=== PATIENT | male | born 1985 | race Caucasian/White ===

== ENCOUNTER 2022-05-05 20:23 | Inpatient (IN) | payer BC, OTHER ==
[~2022-05-05 20:23] MED LIST: Iopamidol 370 76% 100 ML VIAL ONE; Magnevist 469MG/ML 20 ML VIAL ONE
[2022-05-05 22:35] VITALS: BMI 44.1
[2022-05-05] MEDS ORDERED: Ondansetron ODT 4 MG TAB PO PRN (23:12)
[2022-05-05] MEDS ORDERED: Loperamide HCl 2 MG CAP PO PRN ×2 (23:12)
[2022-05-05] MEDS ORDERED: Guaifenesin DM 100-10/5 ML UDCUP PO PRN (23:12)
[2022-05-05] MEDS ORDERED: Ondansetron PF 4 MG/2 ML Vial IVP PRN (23:12)
[2022-05-05] MEDS ORDERED: Acetaminophen 650 MG Suppository PR PRN (23:12)
[2022-05-05] MEDS ORDERED: Bisacodyl 5 MG TAB PO PRN (23:12)
[2022-05-05] MEDS ORDERED: Calcium Carbonate 500 MG ChewTAB PO PRN (23:12)
[2022-05-05] MEDS ORDERED: Bisacodyl 10 MG SUPP PR PRN (23:12)
[2022-05-05] MEDS ORDERED: Senokot S 8.6-50 MG TAB PO PRN (23:12)
[2022-05-05] MEDS: Dexamethasone 4 mg/ml Vial SLOW IVP SCH (23:14)
[2022-05-06] MEDS: Acetaminophen 325 MG TAB PO PRN ×2 (03:17→22:26)
[2022-05-06 05:05] LABS: #Basophils 0.1 thou/uL (0.0-0.2); #Lymphocytes 0.9 thou/uL (1.20-3.40); #Monocytes 0.2 thou/uL (0.11-0.59); #Neutrophils 8.7 thou/uL (1.40-6.50); %Lymphocytes 8.9 % (21.0-51.0); %Monocytes 1.6 % (0.0-10.0); %Neutrophils 88.4 % (42.0-75.0); Hemoglobin 14.7 g/dL (14.0-18.0); Mean Corpuscular HGB CONC 34.1 g/dL (32.0-36.0); Mean Corpuscular Hemoglobin 30.6 pg (27.0-31.0); Mean Corpuscular Volume 89.6 fL (78.0-98.0); Mean Platelet Volume 7.6 fL (7.4-10.4); Platelet Count 227 thou/uL (130-400); RBC Distribution Width 12.7 % (11.5-14.5); Red Blood Cell (RBC) Count 4.81 mill/uL (4.70-6.10); White Blood Cell (WBC) Count 9.8 thou/uL (4.8-10.8)
[2022-05-06 05:24] LABS: ALT (SGPT) 31 U/L (8-55); AST (SGOT) 14 U/L (5-34); Albumin 4.1 g/dL (3.5-5.0); Alkaline Phosphatase 59 U/L (40-110); Anion Gap 15 mmol/L (10-20); BUN (Urea Nitrogen) 15 mg/dL (8.9-20.6); Bilirubin, Total 1.3 mg/dL (0.2-1.2); Calc. Creatinine Clearance 210 mL/min (70-130); Calcium 9.6 mg/dL (7.8-10.44); Carbon Dioxide 20 mmol/L (22-29); Chloride 106 mmol/L (98-107); Estimated GFR 112; Glucose 204 mg/dL (70-105); Potassium 4.4 mmol/L (3.5-5.1); Protein, Total 7.1 g/dL (6.0-8.3); Sodium 137 mmol/L (136-145)
[2022-05-06] MEDS: Dexamethasone 4 mg/ml Vial SLOW IVP SCH ×3 (06:01→17:56)
[2022-05-06 08:22] LABS: Prothrombin Time 13.1 sec (12.0-14.7)
[2022-05-06] MEDS ORDERED: Famotidine 20 MG TAB PO SCH (09:00)
[2022-05-06] MEDS: Famotidine/PF 20 mg/2ml Vial SLOW IVP SCH ×2 (09:26→22:26)
[2022-05-06] MEDS ORDERED: CEFAZOLIN 2 GM in Sodium Chloride 0.9% 100 ML IVPB SCH (14:30)
[2022-05-07] MEDS: Dexamethasone 4 mg/ml Vial SLOW IVP SCH ×4 (00:23→17:23)
[2022-05-07] MEDS: Famotidine/PF 20 mg/2ml Vial SLOW IVP SCH (09:07)
[2022-05-07] MEDS: Acetaminophen 325 MG TAB PO PRN ×2 (09:08→22:03)
[2022-05-07] MEDS ORDERED: Dextrose 5% in Water 1,000 ML IV PRN (17:58)
[2022-05-07] MEDS ORDERED: HumaLOG 300 UNITS/3 ML VIAL SC PRN (17:58)
[2022-05-07] MEDS ORDERED: Dextrose 50% Abboject 50 ML SYRINGE SLOW IVP PRN (17:58)
[2022-05-07] MEDS: HumaLOG 300 UNITS/3 ML VIAL SC PRN (18:24)
[2022-05-08] MEDS: Dexamethasone 4 mg/ml Vial SLOW IVP SCH ×5 (00:34→23:50)
[2022-05-08 05:34] LABS: #Lymphocytes 1.4 thou/uL (1.20-3.40); #Monocytes 0.5 thou/uL (0.11-0.59); %Basophils 0.1 % (0.0-1.0); %Eosinophils 0.1 % (0.0-10.0); %Lymphocytes 9.9 % (21.0-51.0); %Monocytes 3.7 % (0.0-10.0); %Neutrophils 86.2 % (42.0-75.0); Hemoglobin 14.7 g/dL (14.0-18.0); Mean Corpuscular HGB CONC 34.8 g/dL (32.0-36.0); Mean Corpuscular Hemoglobin 31.6 pg (27.0-31.0); Mean Corpuscular Volume 90.9 fL (78.0-98.0); Mean Platelet Volume 7.8 fL (7.4-10.4); Platelet Count 233 thou/uL (130-400); RBC Distribution Width 12.9 % (11.5-14.5); Red Blood Cell (RBC) Count 4.67 mill/uL (4.70-6.10)
[2022-05-08 05:51] LABS: Anion Gap 14 mmol/L (10-20); BUN (Urea Nitrogen) 18 mg/dL (8.9-20.6); Calc. Creatinine Clearance 208 mL/min (70-130); Calcium 9.3 mg/dL (7.8-10.44); Carbon Dioxide 26 mmol/L (22-29); Chloride 102 mmol/L (98-107); Estimated GFR 112; Glucose 130 mg/dL (70-105); Potassium 4.1 mmol/L (3.5-5.1); Sodium 138 mmol/L (136-145)
[2022-05-08] MEDS ORDERED: CEFAZOLIN 2 GM in Sodium Chloride 0.9% 100 ML IVPB SCH (06:00)
[2022-05-08] MEDS: Acetaminophen 325 MG TAB PO PRN (09:48)
[2022-05-08] MEDS: HumaLOG 300 UNITS/3 ML VIAL SC PRN (12:17)
[2022-05-09] MEDS: Sodium Chloride 0.9% 1,000 ML IV SCH ×2 (05:50→21:15)
[2022-05-09] MEDS: Dexamethasone 4 mg/ml Vial SLOW IVP SCH ×3 (05:50→21:12)
[2022-05-09] MEDS ORDERED: Mannitol 12.5 GM/50 ML ONE (13:36)
[2022-05-09] MEDS ORDERED: Papaverine 60 MG/2 ML VIAL ONE (13:36)
[2022-05-09] MEDS ORDERED: Bacitracin Zinc Ointment 30 gm TUBE ONE (13:45)
[2022-05-09] MEDS ORDERED: fentaNYL Citrate/PF 100 MCG/2 ML SYRINGE ONE ×3 (13:57→16:12)
[2022-05-09] MEDS ORDERED: SUGAMMADEX SODIUM 200 MG/2 ML VIAL ONE (13:57)
[2022-05-09] MEDS ORDERED: Dexamethasone 20 MG/5 ML VIAL ONE (14:15)
[2022-05-09] MEDS ORDERED: Ondansetron PF 4 MG/2 ML Vial ONE (14:15)
[2022-05-09] MEDS ORDERED: Lidocaine 1% PF 5 ML VIAL ONE (14:15)
[2022-05-09] MEDS ORDERED: Phenylephrine 10 MG/ML VIAL ONE (14:15)
[2022-05-09] MEDS ORDERED: Rocuronium Bromide 10 MG/ML (10ML VIAL) ONE (14:15)
[2022-05-09] MEDS ORDERED: PROPOFOL 200 MG/20 ML VIAL ONE (14:15)
[2022-05-09] MEDS ORDERED: Promethazine HCl 25 MG/ML VIAL IM PRN (16:47)
[2022-05-09] MEDS ORDERED: Promethazine HCl 25 MG/ML VIAL IVPB PRN (16:47)
[2022-05-09] MEDS ORDERED: HYDROmorphone 2 MG/ML VIAL SLOW IVP PRN (16:47)
[2022-05-09] MEDS ORDERED: Ondansetron HCl/PF 4 MG/2 ML Vial IVP PRN (16:47)
[2022-05-09] MEDS ORDERED: Labetalol HCl 100 MG/20 ML VIAL SLOW IVP PRN (16:47)
[2022-05-09] MEDS ORDERED: Fentanyl 100 MCG/2 ML VIAL ONE ×3 (16:52→19:33)
[2022-05-09] MEDS ORDERED: Labetalol HCl 100 MG/20 ML VIAL ONE (17:02)
[2022-05-09] MEDS ORDERED: niCARdipine 25 MG in Sodium Chloride 0.9% 250 ML 250 ML IVPB SCH (17:15)
[2022-05-09] MEDS: Acetaminophen/Codeine 30-300mg Tablet PO PRN (22:17)
[2022-05-10] MEDS: Morphine 2 MG/ML VIAL SLOW IVP PRN ×2 (00:14→04:56)
[2022-05-10] MEDS: Dexamethasone 4 mg/ml Vial SLOW IVP SCH ×3 (04:55→21:36)
[2022-05-10] MEDS: Sodium Chloride 0.9% 1,000 ML IV SCH ×2 (06:14→13:52)
[2022-05-10 06:42] LABS: Hemoglobin 14.8 g/dL (14.0-18.0); Mean Corpuscular HGB CONC 32.8 g/dL (32.0-36.0); Mean Corpuscular Hemoglobin 29.7 pg (27.0-31.0); Mean Corpuscular Volume 90.6 fL (78.0-98.0); Mean Platelet Volume 7.6 fL (7.4-10.4); Platelet Count 271 thou/uL (130-400); Red Blood Cell (RBC) Count 4.99 mill/uL (4.70-6.10); White Blood Cell (WBC) Count 20.2 thou/uL (4.8-10.8)
[2022-05-10 06:52] LABS: Anion Gap 20 mmol/L (10-20); BUN (Urea Nitrogen) 21 mg/dL (8.9-20.6); Calc. Creatinine Clearance 234 mL/min (70-130); Calcium 8.7 mg/dL (7.8-10.44); Carbon Dioxide 17 mmol/L (22-29); Chloride 103 mmol/L (98-107); Estimated GFR 116; Glucose 140 mg/dL (70-105); Potassium 4.8 mmol/L (3.5-5.1); Sodium 135 mmol/L (136-145)
[2022-05-10 07:28] LABS: Band 8 % (5-11); Lymphocytes 9 % (21-51); MDiff Complete? YES; Monocytes 2 % (0-10); Neutrophil 79 % (42-75); Platelet Morphology Comment Appears Adequate; RBC Morphology Normal; Reactive Lymphocytes 2 % (0-10)
[2022-05-10] MEDS ORDERED: Polyethylene Glycol 3350 17 GM Packet PO PRN (07:52)
[2022-05-10] MEDS: Acetaminophen/Codeine 30-300mg Tablet PO PRN ×3 (08:10→19:46)
[2022-05-10] MEDS: Senokot S 8.6-50 MG TAB PO SCH ×2 (08:16→21:36)
[2022-05-10] MEDS ORDERED: Magnevist 469MG/ML 20 ML VIAL ONE (09:37)
[2022-05-11] MEDS: Sodium Chloride 0.9% 1,000 ML IV SCH ×3 (01:35→15:47)
[2022-05-11] MEDS: Acetaminophen/Codeine 30-300mg Tablet PO PRN ×3 (03:19→15:50)
[2022-05-11] MEDS: Dexamethasone 4 mg/ml Vial SLOW IVP SCH (04:01)
[2022-05-11] MEDS: Senokot S 8.6-50 MG TAB PO SCH (08:29)
[2022-05-11] MEDS ORDERED: hydrALAZINE 20 MG/ML VIAL SLOW IVP PRN (09:29)
[2022-05-11] MEDS ORDERED: Amlodipine 5 MG TAB PO SCH (10:30)
[2022-05-11 13:31] VITALS: BP 146/112
[2022-05-11] MEDS ORDERED: Dexamethasone 4 mg/ml Vial SLOW IVP SCH (16:00)
[2022-05-11 16:57] VITALS: TEMP 98.2
[2022-05-12] MEDS ORDERED: Amlodipine 5 MG TAB PO SCH (09:00)
== END 2022-05-11 17:30 | disposition home or self-care (01) | DRG 25 ==
LOC: NEURO 20:59 → CCU 05-09 13:57
PROVIDERS: ADMIT Hospitalist; ATTEND Hospitalist
PROC: 00B70ZZ Excision of Cerebral Hemisphere, Open Approach (ICD-10-PCS; principal; 2022-05-09)
PROC: 00B70ZX Excision of Cerebral Hemisphere, Open Approach, Diagnostic (ICD-10-PCS; 2022-05-09)
PROC: 8E09XBZ Computer Assisted Procedure of Head and Neck Region (ICD-10-PCS; 2022-05-09)
DX: C71.1 Malignant neoplasm of frontal lobe (principal); G93.6 Cerebral edema; E87.1 Hypo-osmolality and hyponatremia; D72.829 Elevated white blood cell count, unspecified; T38.0X5A Adverse effect of glucocorticoids and synthetic analogues, initial encounter; R73.9 Hyperglycemia, unspecified; Z80.3 Family history of malignant neoplasm of breast; Z80.49 Family history of malignant neoplasm of other genital organs
CPT/HCPCS: 36415; 36416; 70553; 71260; 74177; 80048; 80053; 85025; 85610; 85730; 86850; 86900; 86901; 88307; 88331; 88334; 88341; 88342; 93005; 93010; A9579; C1713; J1100; J1165; J1815; J2150; J2270; J2370; J2405; J2440; J2704; J3010; J7050; Q4107; Q9967; S0028

== ENCOUNTER 2023-09-20 23:55 | Inpatient (IN) | payer BC ==
[2023-09-21 00:42] LABS: Hematocrit 33.9 % (42.0-52.0); Hemoglobin 11.8 g/dL (14.0-18.0); Manual Diff?? YES; Mean Corpuscular HGB CONC 34.8 g/dL (32.0-36.0); Mean Corpuscular Hemoglobin 34.8 pg (27.0-31.0); Mean Platelet Volume 8.8 fL (7.4-10.4); Platelet Count 198 10x3/uL (130-400); Red Blood Cell (RBC) Count 3.39 mill/uL (4.70-6.10); White Blood Cell (WBC) Count 4.7 10x3/uL (4.8-10.8)
[2023-09-21 00:51] LABS: Delete Auto Diff?? YES
[2023-09-21 00:56] LABS: INR-International Normal Ratio 1.4; PTT 42.9 sec (22.9-36.1); Prothrombin Time 17.8 sec (12.0-14.7)
[2023-09-21 01:05] LABS: ALT (SGPT) 69 U/L (8-55); AST (SGOT) 25 U/L (5-34); Albumin 3.7 g/dL (3.5-5.0); Alkaline Phosphatase 54 U/L (40-110); Anion Gap 17 mmol/L (10-20); BUN (Urea Nitrogen) 13 mg/dL (8.9-20.6); Bilirubin, Total 2.3 mg/dL (0.2-1.2); Calc. Creatinine Clearance 0 mL/min (70-130); Calcium 9.3 mg/dL (7.8-10.44); Carbon Dioxide 19 mmol/L (22-29); Chloride 107 mmol/L (98-107); Estimated GFR 107; Globulin 3.2 g/dL (2.4-3.5); Glucose 132 mg/dL (70-105); Potassium 3.7 mmol/L (3.5-5.1); Protein, Total 6.9 g/dL (6.0-8.3); Sodium 139 mmol/L (136-145)
[2023-09-21 01:09] LABS: Troponin I Less than 0.010 ng/mL (< 0.028)
[2023-09-21] MEDS ORDERED: Cefepime 2 GM VIAL ONE (01:31)
[2023-09-21] MEDS ORDERED: Benzonatate 100 MG CAP ONE ×2 (01:31→01:36)
[2023-09-21] MEDS ORDERED: Sodium Chloride 0.9% 100 ML ONE (01:31)
[2023-09-21] MEDS ORDERED: Vancomycin 1 GM/200 ML (FROZEN) BAG ONE (02:06)
[2023-09-21 02:18] LABS: Anisocytosis SLIGHT = 6-15 cells HPF (0-5); Band 35 % (5-11); CellaVision Operator ID LAB.JMM; Large Platelets 1.9 % (0-5); Lymphocytes 10 % (21-51); Macrocytosis SLIGHT = 6-15 cells HPF (0-5); Metamyelocyte 1 % (0-0); Monocytes 5 % (0-10); Neutrophil 50 % (42-75); Platelet Adequacy Comment Platelets Normal; Polychromasia SLIGHT = 2-3 cells HPF (0-2); Smudge Cells 16.5 %; Total Cell Count 103
[2023-09-21] MEDS ORDERED: Ondansetron ODT 4 MG TAB PO PRN (02:24)
[2023-09-21] MEDS ORDERED: Acetaminophen 325 MG TAB PO PRN (02:24)
[2023-09-21] MEDS ORDERED: Ondansetron PF 4 MG/2 ML Vial IVP PRN (02:24)
[2023-09-21] MEDS ORDERED: Ipratropium/Albuterol 3 ML NEB NEB PRN (02:24)
[2023-09-21] MEDS ORDERED: Lactated Ringer's 1,000 ML IV SCH (02:30)
[2023-09-21 03:37] VITALS: BMI 40.7
[2023-09-21] MEDS ORDERED: Vancomycin (BATCH) 1.5 GM in Premix 1 BAG IVPB SCH (03:45)
[2023-09-21 05:17] LABS: Bacteria/HPF None Seen HPF (None Seen); Bilirubin Negative (Negative); Blood, Urine Negative (Negative); CAUTI Indications for Culture Fever or rigors; Clarity Clear (Clear); Glucose, Urine (Dipstick) Normal (Negative); Ketone, Urine Negative (Negative); Leukocyte Negative Leu/uL (Negative); Nitrite Negative (Negative); Protein, Urine (Dipstick) 30 mg/dL (Neg-Trace); RBC/HPF 0-3 HPF (0-3); Squamous Epithelial None Seen HPF (0-3); Urobilinogen Normal mg/dL (Less than 2); WBC/HPF None Seen HPF (0-3)
[2023-09-21 05:28] LABS: Specific Gravity, Urine Greater than 1.060 (1.002-1.036)
[2023-09-21 05:29] LABS: Urine Culture Reflex No No
[2023-09-21 05:34] LABS: Legionella Urinary Ag Negative (Negative); Strep pneumo Urine Ag NEGATIVE (NEGATIVE)
[2023-09-21 06:13] LABS: Lactic Acid 1.6 mmol/L (0.5-2.2)
[2023-09-21 06:19] LABS: ALT (SGPT) 59 U/L (8-55); AST (SGOT) 21 U/L (5-34); Albumin 3.1 g/dL (3.5-5.0); Alkaline Phosphatase 47 U/L (40-110); Anion Gap 14 mmol/L (10-20); BUN (Urea Nitrogen) 11 mg/dL (8.9-20.6); Calc. Creatinine Clearance 219 mL/min (70-130); Calcium 8.1 mg/dL (7.8-10.44); Carbon Dioxide 20 mmol/L (22-29); Chloride 110 mmol/L (98-107); Estimated GFR 116; Globulin 2.2 g/dL (2.4-3.5); Glucose 139 mg/dL (70-105); Potassium 3.9 mmol/L (3.5-5.1); Protein, Total 5.3 g/dL (6.0-8.3); Sodium 140 mmol/L (136-145)
[2023-09-21 06:22] LABS: Troponin I Less than 0.010 ng/mL (< 0.028)
[2023-09-21 06:35] LABS: Hematocrit 29.3 % (42.0-52.0); Manual Diff?? YES; Mean Corpuscular HGB CONC 34.1 g/dL (32.0-36.0); Mean Corpuscular Hemoglobin 34.8 pg (27.0-31.0); Mean Corpuscular Volume 102.1 fl (78.0-98.0); Mean Platelet Volume 8.9 fL (7.4-10.4); Platelet Count 174 10x3/uL (130-400); RBC Distribution Width 15.5 % (11.5-14.5); Red Blood Cell (RBC) Count 2.87 mill/uL (4.70-6.10); White Blood Cell (WBC) Count 4.4 10x3/uL (4.8-10.8)
[2023-09-21 06:52] LABS: Delete Auto Diff?? YES
[2023-09-21 07:52] LABS: Band 26 % (5-11); Lymphocytes 22 % (21-51); Monocytes 3 % (0-10); Neutrophil 49 % (42-75)
[2023-09-21 07:53] LABS: Platelet Adequacy Comment Platelets Normal; Polychromasia SLIGHT = 2-3 cells (100X) (0-2/hpf)
[2023-09-21] MEDS ORDERED: guaiFENesin ER 600 MG TAB PO SCH (09:59)
[2023-09-21] MEDS: levETIRAcetam 500 MG TAB PO SCH ×2 (10:00→20:41)
[2023-09-21] MEDS: Apixaban 5 MG TAB PO SCH ×2 (10:00→20:40)
[2023-09-21] MEDS: Ipratropium/Albuterol 3 ML NEB NEB SCH ×4 (10:45→22:40)
[2023-09-21 11:03] LABS: Troponin I Less than 0.010 ng/mL (< 0.028)
[2023-09-21] MEDS ORDERED: Dexamethasone 1 MG TAB PO SCH ×2 (11:45→21:00)
[2023-09-21] MEDS ORDERED: Iopamidol-370 76% 500 ML MDV (1 ML CHARGE) ONE (13:55)
[2023-09-21] MEDS: Cefepime 2 GM in Sodium Chloride 0.9% 100 ML IVPB SCH (15:21)
[2023-09-21] MEDS: Benzonatate 100 MG CAP PO PRN (17:15)
[2023-09-21] MEDS: Vancomycin (BATCH) 1.25 GM in Premix 1 BAG IVPB SCH (18:24)
[2023-09-21] MEDS: guaiFENesin ER 600 MG TAB PO SCH (20:41)
[2023-09-22] MEDS: Ipratropium/Albuterol 3 ML NEB NEB SCH ×6 (02:15→23:23)
[2023-09-22] MEDS: Cefepime 2 GM in Sodium Chloride 0.9% 100 ML IVPB SCH ×2 (02:46→14:39)
[2023-09-22 04:37] LABS: Hematocrit 27.9 % (42.0-52.0); Hemoglobin 9.2 g/dL (14.0-18.0); Manual Diff?? YES; Mean Corpuscular Hemoglobin 34.6 pg (27.0-31.0); Mean Corpuscular Volume 104.9 fl (78.0-98.0); Mean Platelet Volume 8.5 fL (7.4-10.4); Platelet Count 154 10x3/uL (130-400); RBC Distribution Width 15.8 % (11.5-14.5); Red Blood Cell (RBC) Count 2.66 mill/uL (4.70-6.10); White Blood Cell (WBC) Count 4.5 10x3/uL (4.8-10.8)
[2023-09-22 04:39] LABS: Delete Auto Diff?? YES
[2023-09-22 05:03] LABS: Anion Gap 13 mmol/L (10-20); BUN (Urea Nitrogen) 9 mg/dL (8.9-20.6); Calc. Creatinine Clearance 222 mL/min (70-130); Calcium 8.7 mg/dL (7.8-10.44); Carbon Dioxide 22 mmol/L (22-29); Chloride 107 mmol/L (98-107); Estimated GFR 117; Glucose 180 mg/dL (70-105); Potassium 3.9 mmol/L (3.5-5.1); Sodium 138 mmol/L (136-145)
[2023-09-22 05:09] LABS: Anisocytosis SLIGHT = 6-15 cells HPF (0-5); Band 2 % (5-11); CellaVision Operator ID lab.sh2; Lymphocytes 13 % (21-51); Macrocytosis SLIGHT = 6-15 cells HPF (0-5); Monocytes 5 % (0-10); Neutrophil 79 % (42-75); Ovalocytes SLIGHT = 2-5 cells HPF (0-1); Platelet Adequacy Comment Platelets Normal; Poikilocytosis SLIGHT = 6-15 cells HPF (0-5); Polychromasia MODERATE = 3-4 cells HPF (0-2); Reactive Lymphocytes 1 % (0-10); Total Cell Count 100
[2023-09-22] MEDS: Vancomycin (BATCH) 1.25 GM in Premix 1 BAG IVPB SCH ×2 (06:23→20:15)
[2023-09-22] MEDS: Apixaban 5 MG TAB PO SCH ×2 (08:56→20:29)
[2023-09-22] MEDS: guaiFENesin ER 600 MG TAB PO SCH ×2 (08:56→20:29)
[2023-09-22] MEDS: levETIRAcetam 500 MG TAB PO SCH ×2 (08:56→20:29)
[2023-09-22] MEDS: Dexamethasone 1 MG TAB PO SCH (08:57)
[2023-09-22] MEDS: Benzonatate 100 MG CAP PO PRN (13:12)
[2023-09-22 19:22] LABS: Vancomycin, Trough 9.9 ug/mL
[2023-09-22] MEDS: Vancomycin 1 GM in Premix 1 BAG IVPB SCH (20:30)
[2023-09-23] MEDS: Ipratropium/Albuterol 3 ML NEB NEB SCH ×6 (02:56→22:55)
[2023-09-23] MEDS: Cefepime 2 GM in Sodium Chloride 0.9% 100 ML IVPB SCH ×2 (02:58→15:02)
[2023-09-23] MEDS: Benzonatate 100 MG CAP PO PRN ×2 (03:08→10:58)
[2023-09-23 05:19] LABS: Hematocrit 27.4 % (42.0-52.0); Hemoglobin 9.1 g/dL (14.0-18.0); Manual Diff?? YES; Mean Corpuscular HGB CONC 33.2 g/dL (32.0-36.0); Mean Corpuscular Hemoglobin 34.5 pg (27.0-31.0); Mean Corpuscular Volume 103.8 fl (78.0-98.0); Platelet Count 174 10x3/uL (130-400); RBC Distribution Width 15.3 % (11.5-14.5); Red Blood Cell (RBC) Count 2.64 mill/uL (4.70-6.10); White Blood Cell (WBC) Count 4.8 10x3/uL (4.8-10.8)
[2023-09-23 05:25] LABS: Delete Auto Diff?? YES
[2023-09-23 05:41] LABS: Anion Gap 14 mmol/L (10-20); BUN (Urea Nitrogen) 6 mg/dL (8.9-20.6); Calc. Creatinine Clearance 231 mL/min (70-130); Calcium 8.7 mg/dL (7.8-10.44); Carbon Dioxide 23 mmol/L (22-29); Chloride 107 mmol/L (98-107); Estimated GFR 118; Glucose 147 mg/dL (70-105); Potassium 3.8 mmol/L (3.5-5.1); Sodium 140 mmol/L (136-145)
[2023-09-23] MEDS: Vancomycin 1 GM in Premix 1 BAG IVPB SCH ×3 (05:44→21:19)
[2023-09-23 06:25] LABS: Band 19 % (5-11); Hypochromia SLIGHT = 6-15 cells (100X) (0-5/hpf); Lymphocytes 10 % (21-51); Macrocytosis SLIGHT = 6-15 cells (100X) (0-5/hpf); Monocytes 6 % (0-10); Neutrophil 62 % (42-75); Nucleated RBC (Manual Ct) 1 % (0); Reactive Lymphocytes 3 % (0-10)
[2023-09-23 06:26] LABS: Platelet Adequacy Comment Appears Adequate
[2023-09-23] MEDS: levETIRAcetam 500 MG TAB PO SCH ×2 (09:46→21:18)
[2023-09-23] MEDS: Apixaban 5 MG TAB PO SCH ×2 (09:47→21:19)
[2023-09-23] MEDS: Dexamethasone 1 MG TAB PO SCH (09:47)
[2023-09-23] MEDS: guaiFENesin ER 600 MG TAB PO SCH ×2 (09:47→21:18)
[2023-09-24] MEDS: Benzonatate 100 MG CAP PO PRN (00:16)
[2023-09-24] MEDS: Cefepime 2 GM in Sodium Chloride 0.9% 100 ML IVPB SCH (02:50)
[2023-09-24] MEDS: Ipratropium/Albuterol 3 ML NEB NEB SCH ×3 (03:32→11:03)
[2023-09-24 05:23] LABS: Hematocrit 29.3 % (42.0-52.0); Hemoglobin 9.6 g/dL (14.0-18.0); Manual Diff?? YES; Mean Corpuscular HGB CONC 32.8 g/dL (32.0-36.0); Mean Corpuscular Hemoglobin 34.2 pg (27.0-31.0); Mean Corpuscular Volume 104.3 fl (78.0-98.0); Mean Platelet Volume 8.4 fL (7.4-10.4); Platelet Count 207 10x3/uL (130-400); RBC Distribution Width 15.5 % (11.5-14.5); Red Blood Cell (RBC) Count 2.81 mill/uL (4.70-6.10); White Blood Cell (WBC) Count 5.3 10x3/uL (4.8-10.8)
[2023-09-24 05:32] LABS: Delete Auto Diff?? YES
[2023-09-24 05:44] LABS: Anion Gap 16 mmol/L (10-20); BUN (Urea Nitrogen) 7 mg/dL (8.9-20.6); Calc. Creatinine Clearance 237 mL/min (70-130); Calcium 8.9 mg/dL (7.8-10.44); Carbon Dioxide 23 mmol/L (22-29); Chloride 106 mmol/L (98-107); Estimated GFR 119; Glucose 153 mg/dL (70-105); Potassium 3.9 mmol/L (3.5-5.1); Sodium 141 mmol/L (136-145)
[2023-09-24] MEDS: Vancomycin 1 GM in Premix 1 BAG IVPB SCH (05:50)
[2023-09-24 06:12] LABS: Anisocytosis SLIGHT = 6-15 cells HPF (0-5); Band 11 % (5-11); CellaVision Operator ID lab.sh2; Lymphocytes 15 % (21-51); Macrocytosis SLIGHT = 6-15 cells HPF (0-5); Monocytes 4 % (0-10); Neutrophil 71 % (42-75); Nucleated RBC (Manual Ct) 3 % (0); Platelet Adequacy Comment Platelets Normal; Polychromasia MODERATE = 3-4 cells HPF (0-2); Smudge Cells 4.9 %; Total Cell Count 103
[2023-09-24] MEDS: Dexamethasone 1 MG TAB PO SCH (09:33)
[2023-09-24] MEDS: levETIRAcetam 500 MG TAB PO SCH (09:33)
[2023-09-24] MEDS: guaiFENesin ER 600 MG TAB PO SCH (09:34)
[2023-09-24] MEDS: Apixaban 5 MG TAB PO SCH (09:34)
[2023-09-24 12:03] VITALS: BP 141/95; TEMP 97.1
== END 2023-09-24 13:23 | disposition home or self-care (01) | DRG 871 ==
LOC: ERS 23:55 → 2NO 09-21 02:24
PROVIDERS: ADMIT Physician Assistant; ATTEND Internal Medicine
DX: A41.9 Sepsis, unspecified organism (principal); J18.9 Pneumonia, unspecified organism; J96.01 Acute respiratory failure with hypoxia; C71.9 Malignant neoplasm of brain, unspecified; D84.821 Immunodeficiency due to drugs; D64.9 Anemia, unspecified; Z79.899 Other long term (current) drug therapy; Z79.01 Long term (current) use of anticoagulants; Z86.718 Personal history of other venous thrombosis and embolism; Z98.890 Other specified postprocedural states
CPT/HCPCS: 36415; 71045; 71275; 80048; 80053; 80202; 81001; 82607; 83605; 83880; 84484; 85025; 85610; 85730; 87040; 87070; 87081; 87086; 87205; 87449; 87899; 93005; 94640; 96365; J0692; J3370; J3370-JW; J3490; J7120; J7620; J8540; Q9967

== ENCOUNTER 2023-12-14 10:59 | Emergency (ER) | payer BC | END 2023-12-14 13:15 | disposition home or self-care (01) | LOC: ERS 10:59 | DX: S09.90XA Unspecified injury of head, initial encounter (principal); W18.30XA Fall on same level, unspecified, initial encounter | CPT/HCPCS: 70450 ==